=== PATIENT | female | born 1995 | race African-American/Black ===

== ENCOUNTER 2017-05-09 05:43 | Emergency (ER) | payer BC ==
--- NOTE | ~2017-05-09 | CR72 ---
[facility] A Service of [facility] & [facility] RADIOLOGY TEXT RESULTS PATIENT: GWYN PINEDO LOCATION: [facility] : [birth year] UNIT #: [id number] AGE: [address]: Emeka Nolan MD SEX: F ORDER DR: [id number] [facility] [address] [facility] [place], [place] [address] [id number] MR#: [id number] Acc #: [id number] NAME: GWYN PINEDO : 1995 SEX: F STUDY DATE/TIME: 05/09/2017 6:30 UNIT: [facility] ROOM: STUDY DESCRIPTION: CR Chest Single View Portable Attending Physician: Emeka Nolan M.D. Ordering Physician: Emeka Nolan M.D. Primary Care Physician: Primary Care Physician No MEDICAL IMAGING REPORT This report is preliminary unless electronic signature is present EXAM Portable chest, 05/09/2017 HISTORY Chest pain, chest tightness, midsternal chest pain, nausea and vomiting beginning today. FINDINGS A single AP portable view of the chest shows both lungs to be clear. The heart is normal in size. The mediastinal contour is normal. No significant bone abnormalities are seen. IMPRESSION Normal portable chest. Dictated by... Nikolas Solitario M.D. THIS IS AN ELECTRONICALLY VERIFIED REPORT Nikolas Solitario M.D. at 05/10/2017 8:05 AM RYAN/chato TD: 05/09/2017 09:29 JOB #: [id number] MEDICAL IMAGING REPORT Page 1 of 1 COPY
--- NOTE | ~2017-05-09 | EKG ---
PATIENT: GWYN PINEDO UNIT #: [id number] Ventricular Rate: 60 BPM Atrial Rate: 60 BPM P-R Interval: 134 ms QRS Duration: 74 ms Q-T Interval: 442 ms QTC Calculation(Bezet): 442 ms P Cuddy: 37 degrees Calculated R Cuddy: 24 degrees Calculated T Cuddy: 19 degrees Diagnosis Line: Normal sinus rhythm with sinus arrhythmia Diagnosis Line: Normal ECG Diagnosis Line: No previous ECGs available Diagnosis Line: Confirmed by BETTINA ALANIS MD ([id number]) on Diagnosis Line: 05/09/2017 10:47:27 PM INTERPRETING MD: MACARIO
[2017-05-09 06:32] LABS: BASOPHIL% 0.7 % (0-2.5); EOSINOPHIL# 0.3 X10e3 (0-0.7); HEMATOCRIT 38.3 % (35.0-45.0); HEMOGLOBIN 12.6 gm/dL (12.0-16.0); LYMPHOCYTE# 1.6 X10e3 (1.0-3.5); LYMPHOCYTE% 25.3 % (17.0-45.0); MEAN CELL VOLUME 86.2 FL (83-96); MEAN CORPUSCULAR HEMOGLOBIN 28.5 PG (28-34); MEAN PLATELET VOLUME 9.4 FL (6.5-11.5); MONOCYTE# 0.4 X10e3 (0-1.0); MONOCYTE% 6.6 % (3.0-12.0); NEUTROPHIL# 4.1 X10e3 (1.5-7.1); NEUTROPHIL% 63.4 % (40-75); PLATELET COUNT 229 X10e3 (140-420); RED BLOOD COUNT 4.44 X10e (3.90-5.30); RED CELL DISTRIBUTION WIDTH 12.2 % (11.0-15.5); WHITE BLOOD COUNT 6.5 X10e3 (4.0-10.5)
[2017-05-09 06:33] LABS: POC - TROPONIN <0.05 ng/mL (<=0.05)
[2017-05-09 06:42] LABS: DIFF IND NO
[2017-05-09 07:26] LABS: ALBUMIN SERUM 4.1 g/dL (3.5-5.0); BILIRUBIN, DIRECT 0.1 mg/dL (0.0-0.2); BILIRUBIN,INDIRECT 0.1 mg/dL (0.0-0.9); BILIRUBIN,TOTAL 0.2 mg/dL (0.2-2.0); CALCIUM SERUM 9.2 mg/dL (8.4-10.2); POTASSIUM 3.6 mmol/L (3.5-5.1); PROTEIN TOTAL SERUM 7.1 g/dL (6.0-8.3)
== END 2017-05-09 07:35 | disposition home or self-care (01) ==
LOC: CED 05:43
PROVIDERS: Emergency Medicine
DX: K21.9 Gastro-esophageal reflux disease without esophagitis (principal)
CPT/HCPCS: 36415; 71010; 80048; 80076; 82553; 83690; 84484; 84703; 85025; 93005; 96361; 96374; 99285; J2405